=== PATIENT | male | born 1960 | race Caucasian/White ===

== ENCOUNTER 2017-03-26 19:03 | Emergency (ER) | payer BC, OTHER ==
--- NOTE | 2017-03-26 19:29 | Emergency Department Record ---
History of Present Illness - General Chief Complaint: Laceration(s) Stated Complaint: OBJECT IN LEFT HAND Time Seen by Provider: 03/26/17 19:21 Source: Patient - History of Present Illness Initial Commments: The patient has a large long wood splinter in his left hand ring finger prior to arrival. Admits to a few beers during the day today while working. Tetanus not up to date. - Related Data Home Medications Medication Instructions Recorded Confirmed Last Taken Cetirizine HCl/Pseudoephedrine 1 each PO DAILY tab 01/26/17 Unknown [Zyrtec-D Tablet] Lisinopril/Hydrochlorothiazide 90 Days 01/26/17 Unknown [Lisinopril-Hctz 20-12.5 Mg Tab] Previous Rx's Medication Instructions Recorded Cephalexin [Keflex] 500 mg PO QID #39 cap 03/26/17 Hydrocodone/Acetaminophen [Ringold 1 each PO Q6HR #20 tablet 03/26/17 5-325 Tablet] Allergies Allergy/AdvReac Type Severity Reaction Status Date / Time No Known Allergies Allergy Unverified 01/26/17 13:15 Review of Systems Reviewed: No additional complaints except as noted below Constitutional: Reports: As per HPI. Denies: Chills, Fever, Malaise, Night sweats, Weakness, Weight change Eyes: Reports: As per HPI. Denies: Eye discharge, Eye pain, Photophobia, Vision change ENT: Reports: As per HPI. Denies: Congestion, Dental pain, Ear pain, Epistaxis , Hearing loss, Throat pain Respiratory: Reports: As per HPI. Denies: Cough, Dyspnea, Hemoptysis, Stridor, Wheezes Cardiovascular: Reports: As per HPI. Denies: Arrhythmia, Chest pain, Dyspnea on exertion, Edema, Murmurs, Orthopnea, Palpitations, Paroxysmal nocturnal dyspnea, Rheumatic Fever, Syncope Endocrine: Reports: As per HPI. Denies: Fatigue, Heat or cold intolerance, Polydipsia, Polyuria Gastrointestinal: Reports: As per HPI. Denies: Abdominal pain, Constipation, Diarrhea, Hematemesis, Hematochezia, Melena, Nausea, Vomiting Genitourinary: Reports: As per HPI. Denies: Dysuria, Frequency, Hematuria, Incontinence, Retention, Testicular pain, Testicular mass, Urgency Musculoskeletal: Reports: As per HPI. Denies: Arthralgia, Back pain, Gout, Joint swelling, Myalgia, Neck pain Skin: Reports: As per HPI. Denies: Bruising, Change in color, Change in hair/ nails, Lesions, Pruritus, Rash Neurological: Reports: As per HPI. Denies: Abnormal gait, Confusion, Headache, Numbness, Paresthesias, Seizure, Tingling, Tremors, Vertigo, Weakness Psychiatric: Reports: As per HPI. Denies: Anxiety, Auditory hallucinations, Depression, Homicidal thoughts, Suicidal thoughts, Visual hallucinations Hematological/Lymphatic: Reports: As per HPI. Denies: Anemia, Blood Clots, Easy bleeding, Easy bruising, Swollen glands Past Medical History - SOCIAL HISTORY Smoking Status: Current every day smoker Alcohol Use Comment: 4-5 beers/night - RESPIRATORY Hx Respiratory Disorders: Yes Hx Asthma: Yes - CARDIOVASCULAR Hx Cardio Disorders: Yes Hx Hypertension: Yes - NEURO Hx Neuro Disorders: No - GI Hx GI Disorders: No - Hx Genitourinary Disorders: No - ENDOCRINE Hx Endocrine Disorders: No - MUSCULOSKELETAL Hx Musculoskeletal Disorders: No - PSYCH Hx Psych Problems: No - HEMATOLOGY/ONCOLOGY Hx Hematology/Oncology Disorders: No Family Medical History Hx Diabetes: Father Physical Exam - General General Appearance: Alert, Oriented x3, Cooperative, No acute distress - Head Head exam: Normal inspection - Eye Eye exam: Normal appearance, PERRL Pupils: Normal accommodation - ENT ENT exam: Normal exam, Mucous membranes moist, Normal external ear exam, Normal orophraynx, TM's normal bilaterally Ear exam: Normal external inspection. negative: External canal tenderness Nasal Exam: Normal inspection. negative: Discharge, Sinus tenderness Mouth exam: Normal external inspection, Tongue normal Teeth exam: Normal inspection. negative: Dental caries Throat exam: Normal inspection. negative: Tonsillar erythema, Tonsillar exudate - Neck Neck exam: Normal inspection, Full ROM. negative: Tenderness - Respiratory Respiratory exam: Normal lung sounds bilaterally. negative: Respiratory distress - Cardiovascular Cardiovascular Exam: Regular rate, Normal rhythm, Normal heart sounds - GI/Abdominal GI/Abdominal exam: Soft, Normal bowel sounds. negative: Tenderness - Rectal Rectal exam: Deferred - exam: Deferred - Extremities Extremities exam: Normal inspection, Full ROM, Normal capillary refill, Other ( Wood splinter in 4th digit left hand--see diagram). negative: Tenderness Image of Hand: 1 - wood splinter visible on inspection as marked. - Back Back exam: Reports: Normal inspection, Full ROM. Denies: Muscle spasm, Rash noted, Tenderness - Neurological Neurological exam: Alert, Normal gait, Oriented X3, Reflexes normal - Psychiatric Psychiatric exam: Normal affect, Normal mood - Skin Skin exam: Dry, Intact, Normal color, Warm Course Vital Signs 03/26/17 19:19 Temperature 97.9 F Pulse Rate [ 77 Pulse Ox Probe] Respiratory 24 Rate Blood Pressure 158/102 [Right Arm] Pulse Ox 96 - Reevaluation(s) Reevaluation #1: 03/26/17 20:51PROCEDURE: 2% NO epi digital block, sterile prep and drape of entire hand, copious irrigatioin , numerous FB's of wood splinterings TNTC including two large splinters of wood removed after extending incision, level down to tendon sheath, closed wound of 3 cm with #5 verticle mattress 4.0 prolene. Patient aware of high risk of infection and need for hand surgery follow up with possibliltiy of retained FB's of wood splinters. 03/26/17 20:54 Reevaluation #2: 03/26/17 21:[address] Hall hand surgery referral. Medical Decision Making - Management Options MDM Management: Additional Work-up Planned (e.g. ADM/Transfer/OP Study) (Hand surgery referral) - Data Complexity MDM Data: X-Ray Ordered and/or Reviewed (Xray hand: FB to 4th digit on lateral view) Disposition Disposition: Discharge Clinical Impression: Foreign body hand-infection Qualifiers: Encounter type: initial encounter Laterality: left Qualified Code(s): S60.552A - Superficial foreign body of left hand, initial encounter Disposition: Home, Self-Care Condition: (1) Good Instructions: Laceration (ED) Additional Instructions: Take keflex until gone as directed. Ringold as directed as needed for pain. Keep hand bandaged, clean and dry No use hand until wound healed. FU with Hand surgery as instructed. Prescriptions: Hydrocodone/Acetaminophen [Ringold 5-325 Tablet] 1 each PO Q6HR #20 tablet Cephalexin [Keflex] 500 mg PO QID #39 cap Referrals: SHILOH HALL M.D. [MEDICAL DOCTOR] - Quality - Quality Measures Quality Measures: N/A - Blood Pressure Screening Blood Pressure Classification: Hypertensive Reading Systolic Measurement: 158 Diastolic Measurement: 102 Screening for High Blood Pressure: < Normal BP, F/U Not Required > [G8783] Normal BP Follow-up Interventions: No follow-up required
[2017-03-26] MEDS ORDERED: HYDROCODONE/APAP 7.5/325MG TABLET PO ONE (20:53)
[2017-03-26] MEDS ORDERED: CEPHALEXIN 500 MG CAPSULE PO STA (20:53)
--- NOTE | 2017-03-28 12:52 | RADIOLOGY REPORT ---
EXAM: LEFT FOURTH FINGER HISTORY: INJURY, LACERATION WITH WOOD. TECHNIQUE: Three views of the left fourth finger were obtained. Comparison: None. Encounter: Initial. FINDINGS: No bone or joint abnormality identified. No fracture seen. There is some soft tissue swelling at the level of the PIP joint. A linear density is seen anterior to the PIP joint on the lateral film. This may just be artifactual as it is not well seen on other views. Foreign body difficult to entirely exclude. IMPRESSION: 1. NO FRACTURE OR OSSEOUS ABNORMALITY. 2. LINEAR RADIOPAQUE STRUCTURE ON THE LATERAL FILM AT THE LEVEL OF THE PIP JOINT. IT IS UNCERTAIN IF THIS IS ARTIFACTUAL OR DUE A FOREIGN BODY. REPEAT LATERAL FILM COULD BE OBTAINED. OTHERWISE, UNREMARKABLE EXAMINATION. JOB NUMBER: [id number] MTDD
== END 2017-03-26 22:39 | disposition home or self-care (01) ==
LOC: ER 19:03
DX: S60.552A Superficial foreign body of left hand, initial encounter (principal); W45.8XXA Other foreign body or object entering through skin, initial encounter
CPT/HCPCS: 10120; 73140; 99283; 99284

== ENCOUNTER 2018-01-13 20:00 | Emergency (ER) | payer BC ==
[2018-01-13] MEDS ORDERED: MORPHINE SULFATE 4MG/ML PREFILLED SYRINGE IVP ONE ×3 (20:21→22:04)
[2018-01-13] MEDS ORDERED: ONDANSETRON HCL IV 4 MG/2 ML VIAL IVP ONE (20:21)
[2018-01-13] MEDS ORDERED: ACETAMINOPHEN 1,000 MG/100 ML BTL IVPB ONE (20:21)
[2018-01-13] MEDS ORDERED: 0.9 % SODIUM CHLORIDE 1,000 ML BAG IV ONE (20:21)
--- NOTE | 2018-01-13 20:26 | Emergency Department Record ---
History of Present Illness - General Chief Complaint: Back Pain/Injury Stated Complaint: BACK AND SIDE PAIN, STAGE 4 LIVER CANCER Time Seen by Provider: 01/13/18 20:20 Source: Patient, Family Mode of Arrival: Ambulatory Limitations: No limitations - History of Present Illness Initial Comments: 57 yo male presents with acute left sided pain. The onset was about 1 hour ago. He has recently been undergoing testing for new hematuria. He had an US and a CT. The CT scan demonstrated a left large soft tissue mass of 9 x 9 8 cm. Consistent with neoplasm. There is invasion into the renal vein. The CT demonstrated area suspicious for mets in the lungs and spine. He was seen once in the office by urology and once by [facility] yesterday. No biopsy at this point in time. No vomiting or fever. PCP is Jose Maria. Urology is Urban. Complaint: Back pain Onset/Timin -: Hour(s) Similar Symptoms Previously: No Radiation: Abdomen Severity: Severe Severity scale (1-10): 10 Improves With: None Worsens With: None Context: Unknown Associated Symptoms: Denies other symptoms - Related Data Allergies Allergy/AdvReac Type Severity Reaction Status Date / Time No Known Drug Allergies Allergy Verified 01/13/18 20:09 Travel Screening - Travel/Exposure Within Last 30 Days Have you traveled within the last 30 days?: No - Travel Symptoms Symptom Screening: None Review of Systems Constitutional: Denies: Chills, Fever, Malaise, Weakness Eyes: Denies: Eye discharge, Eye pain, Photophobia, Vision change ENT: Denies: Congestion, Throat pain Respiratory: Denies: Cough, Dyspnea, Hemoptysis, Stridor, Wheezes Cardiovascular: Denies: Chest pain, Palpitations, Syncope Endocrine: Denies: Fatigue, Polydipsia, Polyuria Gastrointestinal: Reports: Abdominal pain. Denies: Diarrhea, Nausea, Vomiting Genitourinary: Reports: Hematuria. Denies: Dysuria, Incontinence, Retention Musculoskeletal: Reports: Back pain. Denies: Arthralgia, Joint swelling, Myalgia, Neck pain Skin: Denies: Bruising, Change in color, Rash Neurological: Denies: Headache, Numbness, Weakness Psychiatric: Denies: Anxiety Hematological/Lymphatic: Denies: Easy bleeding, Easy bruising, Swollen glands Past Medical History - SOCIAL HISTORY Smoking Status: Current every day smoker - RESPIRATORY Hx Respiratory Disorders: Yes Hx Asthma: Yes - CARDIOVASCULAR Hx Cardio Disorders: Yes Hx Hypertension: Yes - NEURO Hx Neuro Disorders: No - GI Hx GI Disorders: No - Hx Genitourinary Disorders: No - ENDOCRINE Hx Endocrine Disorders: No - MUSCULOSKELETAL Hx Musculoskeletal Disorders: No - PSYCH Hx Psych Problems: No - HEMATOLOGY/ONCOLOGY Hx Hematology/Oncology Disorders: Yes Hx Cancer: Yes (Kidney, Spine mets) Hx Chemotherapy: No Hx Radiation Therapy: No Family Medical History Any Significant Family History?: Yes Hx Diabetes: Father Physical Exam - General General Appearance: Alert, Oriented x3, Cooperative, No acute distress Limitations: No limitations - Head Head exam: Normal inspection - Eye Eye exam: Normal appearance. negative: Conjunctival injection, Scleral icterus - ENT ENT exam: Normal exam, Mucous membranes moist Ear exam: Normal external inspection Nasal Exam: Normal inspection Mouth exam: Normal external inspection - Neck Neck exam: Normal inspection, Full ROM. negative: Tenderness - Respiratory Respiratory exam: Normal lung sounds bilaterally. negative: Respiratory distress - Cardiovascular Cardiovascular Exam: Regular rate, Normal rhythm, Normal heart sounds - GI/Abdominal GI/Abdominal exam: Soft, Tenderness (tender left abdomen to left flank). negative: Guarding, Rebound, Rigid - Rectal Rectal exam: Deferred - exam: Deferred - Extremities Extremities exam: Normal inspection, Full ROM, Normal capillary refill. negative: Tenderness - Back Back exam: Reports: Normal inspection, Full ROM. Denies: Muscle spasm, Rash noted, Tenderness - Neurological Neurological exam: Alert, Normal gait, Oriented X3 - Psychiatric Psychiatric exam: Normal affect, Normal mood - Skin Skin exam: Dry, Intact, Normal color, Warm Course Vital Signs 01/13/18 20:09 Temperature 98.0 F Pulse Rate 76 Respiratory 18 Rate Blood Pressure 119/73 Pulse Ox 99 - Reevaluation(s) Reevaluation #1: CT scan reviewed from 01/02/18 Vitals reviewed 01/13/18 20:26 01/13/18 21:00 CBC reviewed Hgb is 10.0 01/13/18 21:15 The CMP was reviewed The BUN and CR are normal The sodium is low at 122 CT ordered given the new pain and drop in HGB 01/13/18 22:[address] today was similar to the CT 10 days ago with the mass and likely metastatic findings. No acute hemorrhage or hematoma. [facility] will be contacted as he will need to be admitted for pain control, treatment of hyponatremia, consult oncology and urology 01/13/18 22:32 I discussed the case with Dr Zambrano [place] [facility] [place] Medical Decision Making - Lab Data Result diagrams: 01/13/18 20:20 01/13/18 20:20 Disposition Disposition: Transfer Clinical Impression: Hyponatremia, Renal mass, Flank pain Disposition: Acute Care Hospital [place] [facility] [place] For Transfer: hyponatremia, renal mass Accepting Physician: Juan Manuel Time Discussed w/Accepting Physician: 22:32 Condition: (2) Stable Forms: Patient Portal Access Time of Disposition: 21:28 Quality - Quality Measures Quality Measures: N/A - Blood Pressure Screening Does Patient Have Any of the Following: No Blood Pressure Classification: Normal BP Reading Systolic Measurement: 119 Diastolic Measurement: 73 Screening for High Blood Pressure: < Normal BP, F/U Not Required > [G8783]
[2018-01-13 20:42] LABS: MEAN CELL VOLUME 93.5 fl (81-97); MEAN CORPUSCULAR HGB CONC 33.3 g/dl (32-36); MEAN PLATELET VOLUME 8.6 fl (7.4-10.4); PLATELET COUNT 335 K/uL (130-400); RED BLOOD COUNT 3.21 M/uL (4.40-5.70); RED CELL DISTRIBUTION WIDTH 12.7 % (11.5-14.5); WHITE BLOOD COUNT W/O DIFF 5.5 K/uL (4.2-12.2)
[2018-01-13 20:46] LABS: MEAN CORPUSCULAR HEMOGLOBIN 31.1 pg (27-33)
[2018-01-13 20:55] LABS: BLOOD UREA NITROGEN 11 mg/dL (6-20); CREATININE 0.9 mg/dL (0.7-1.2); EST GLOMERULAR FILTRATION RATE > 60 mL/min
[2018-01-13 20:56] LABS: TOTAL PROTEIN 6.6 g/dL (6.6-8.7)
[2018-01-13 20:58] LABS: GLUCOSE,RANDOM 86 mg/dL (74-109)
[2018-01-13 21:01] LABS: ALB/GLOB RATIO 1.5 (1.1-1.8); ALKALINE PHOSPHATASE 88 U/L (40-129); ALT/SGPT 11 U/L (<41); AST/SGOT 19 U/L (10.0-50.0)
[2018-01-13 21:05] LABS: INR 0.9; PARTIAL THROMBOPLASTIN TIME 38.7 SECONDS (24.5-39.1); PROTHROMBIN TIME (PATIENT) 10.1 SECONDS (9.5-12.1)
[2018-01-13 21:11] LABS: PLATELET ESTIMATE NORMAL (NORMAL)
[2018-01-13 22:00] LABS: URINE BILIRUBIN NEGATIVE (NEGATIVE); URINE BLOOD LARGE (NEGATIVE); URINE GLUCOSE (UA) NEGATIVE (NEGATIVE); URINE KETONE NEGATIVE (NEGATIVE); URINE LEUKOCYTE ESTERASE NEGATIVE (NEGATIVE); URINE NITRITE NEGATIVE (NEGATIVE); URINE PROTEIN NEGATIVE (NEGATIVE); URINE UROBILINOGEN 0.2 E.U./dL (0.20 - 1.00)
[2018-01-13 22:04] LABS: URINE APPEARANCE SL CLOUDY; URINE COLOR AMBER
[2018-01-13 22:07] LABS: URINE RBC 16 - 25 (NONE SEEN); URINE WBC 0 - 2 (0-2/hpf)
--- NOTE | 2018-01-15 20:38 | CT SCAN REPORT ---
EXAM: CT SCAN ABDOMEN/PELVIS W CONTRAST HISTORY: MASS, LEFT FLANK PAIN, DROP IN HEMOGLOBIN. TECHNIQUE: Axial CT scan of the abdomen and pelvis performed following the intravenous administration of 100 mL of Omnipaque-300 as the IV contrast. No oral contrast utilized at the referring physician's request. COMPARISON: CT urogram 01/02/18. FINDINGS: Large mass left kidney appearing essentially unchanged from the prior study about ten days ago, presumably representing a large renal cell carcinoma. Recommend correlation with prior workup. There is probably invasion in the left renal vein as previously noted. Retroperitoneal and lower retrocrural adenopathy as previously noted, presumably metastatic. Multiple small nodules in the lung bases and a more dominate opacity in the left base abutting the hemidiaphragm as before, having changed relatively little. Apparent destruction of the spinous process of L1 as before with associated soft tissue mass worrisome for metastatic involvement. There is probably also metastatic involvement involving the body of T9 and possibly the upper sacrum bilaterally. Total body bone scan suggested. Tiny low-attenuation foci in the liver as previously noted, nonspecific. There is probably some periportal edema in the liver today as well. Gallbladder not identified consistent with the surgical history. No definite splenic, adrenal, or pancreatic mass identified. No right renal mass identified. Evaluation of the bowel limited without oral contrast. No free intraperitoneal air or free intraperitoneal fluid identified. IMPRESSION: 1. NUMEROUS FINDINGS AGAIN SEEN, SIMILAR TO THE PRIOR CT APPROXIMATELY TEN DAYS AGO ON 01/02/18 INCLUDING A LARGE LEFT RENAL MASS WORRISOME FOR RENAL CELL CARCINOMA, APPARENT INVASION OF THE LEFT RENAL VEIN, RETROPERITONEAL AND LOWER RETROCRURAL ADENOPATHY, SMALL BIBASILAR PULMONARY NODULES AND A MORE DOMINANT OPACITY IN THE LEFT BASE BEFORE, TINY NONSPECIFIC LOW-ATTENUATION FOCI IN THE LIVER, AND PROBABLE SKELETAL METASTATIC DISEASE PARTICULARLY INVOLVING THE SPINOUS PROCESS OF L1, BODY OF T9, AND PROBABLY THE UPPER SACRUM BILATERALLY. TOTAL BODY BONE SCAN SUGGESTED. 2. NO DEFINITE NEW ABDOMINAL OR RETROPERITONEAL HEMATOMA IDENTIFIED. NO FREE AIR OR FREE FLUID EVIDENT. JOB NUMBER: [id number] MTDD
== END 2018-01-14 00:57 | disposition short-term general hospital (02) ==
LOC: ER 20:00
DX: E87.1 Hypo-osmolality and hyponatremia (principal); N28.89 Other specified disorders of kidney and ureter; I10 Essential (primary) hypertension; F17.210 Nicotine dependence, cigarettes, uncomplicated
CPT/HCPCS: 99285 ×2; 96376; 96374; 96375; 85730; 85610; 80053; 81001; 85027; 74177; Q9967; J2405; J2274; J7030